=== PATIENT | male | born 1930 | race Caucasian/White ===

== ENCOUNTER 2018-05-17 09:23 | Inpatient (IN) | payer MEDICARE, OTHER ==
[~2018-05-17 09:23] MED LIST: CEFAZOLIN 1 GM INJ; EPHEDrine SULFATE 50 MG/5 ML SYG; PROPOFOL 200 MG INJ; ROCURONIUM 50 MG INJ
[2018-05-17] MEDS ORDERED: LACTATED RINGER'S 1,000 ML IV* (10:00)
[2018-05-17] MEDS: INSULIN ASPART [NOVOLOG] 3 ML PEN SC ×3 (10:44→17:30)
[2018-05-17] MEDS ORDERED: CARISOPRODOL 350 MG TAB PO (11:00)
[2018-05-17] MEDS ORDERED: BISACODYL 10 MG SUPP PR (11:00)
[2018-05-17] MEDS ORDERED: CEPASTAT LOZENGE MT (11:00)
[2018-05-17] MEDS ORDERED: DIPHENHYDRAMINE 50 MG INJ IV ×2 (11:00→14:30)
[2018-05-17] MEDS ORDERED: NALOXONE (0.4 MG/ML) INJ IV (11:00)
[2018-05-17] MEDS ORDERED: ONDANSETRON 4 MG INJ IV ×2 (11:00→14:30)
[2018-05-17] MEDS ORDERED: ZOLPIDEM 5 MG TAB PO (11:00)
[2018-05-17] MEDS ORDERED: HYDROmorphONE 0.5 MG/0.5 ML SYG IV (11:00)
[2018-05-17] MEDS ORDERED: AL HYDROX/MG HYDROX/SIMETH 30 ML CUP PO (11:00)
[2018-05-17] MEDS ORDERED: HEPARIN 1000 UNITS/ML 10 ML INJ (11:10)
[2018-05-17] MEDS ORDERED: CA CHLORIDE 10% 10 ML SYRINGE (11:13)
[2018-05-17] MEDS ORDERED: LIDOCAINE 2% (SDV) 5 ML INJ (11:31)
[2018-05-17] MEDS ORDERED: PROPOFOL 20 ML (11:31)
[2018-05-17] MEDS ORDERED: ROCURONIUM 50 MG INJ (11:31)
[2018-05-17] MEDS ORDERED: SUCCINYLCHOLINE CHLORIDE 100 MG/5 ML SYG IV (11:31)
[2018-05-17] MEDS: CEFAZOLIN 2 GM/50 ML (PMX) 50 ML IVPB (11:45)
[2018-05-17] MEDS ORDERED: ONDANSETRON 4 MG INJ (11:46)
[2018-05-17] MEDS ORDERED: FAMOTIDINE 20 MG INJ (11:46)
[2018-05-17] MEDS: SURGIFOAM POWDER 1 GM KIT ×2 (12:49→12:50)
[2018-05-17] MEDS: BUPIVACAINE 0.25%/EPI (SDV) 30 ML INJ (12:49)
[2018-05-17] MEDS: GELATIN SIZE 100 SPONGE (12:50)
[2018-05-17] MEDS: THROMBIN 5000 UNIT VIAL (12:51)
[2018-05-17] MEDS: THROMBIN 5000 UNIT VIAL TOP (12:52)
[2018-05-17] MEDS: CEFAZOLIN 1 GM INJ (12:53)
[2018-05-17] MEDS: SODIUM CL BACTERIOSTATIC 30 ML INJ (12:53)
[2018-05-17] MEDS: FENTAnyl 50 MCG/ML VIAL (14:06)
[2018-05-17] MEDS: BUPIVACAINE 0.25% (MPF) 30 ML INJ (14:08)
[2018-05-17] MEDS ORDERED: SUGAMMADEX SODIUM 200 MG/2 ML VIAL IV (14:19)
[2018-05-17] MEDS ORDERED: EPHEDrine SULFATE 50 MG/5 ML SYG IV (14:30)
[2018-05-17] MEDS ORDERED: PROCHLORPERAZINE 10 MG INJ IV (14:30)
[2018-05-17] MEDS ORDERED: MEPERIDINE 25 MG INJ IV (14:30)
[2018-05-17] MEDS ORDERED: FENTAnyl 50 MCG/ML VIAL IV ×2 (14:30)
[2018-05-17] MEDS ORDERED: hydrALAzine 20 MG INJ IV (14:30)
[2018-05-17] MEDS ORDERED: HYDROmorphONE 1 MG/5 ML IV SYRINGE IV ×2 (14:30)
[2018-05-17] MEDS: HYDROmorphONE 0.2 MG/ML PCA IV (15:07)
[2018-05-17] MEDS: DILTIAZEM (CD) 120 MG CAP PO (17:00)
[2018-05-17] MEDS ORDERED: DEXTROSE 50% 50 ML SYRINGE IV ×2 (17:30)
[2018-05-17] MEDS ORDERED: GLUCOSE GEL 15 GRAM TUBE BUCCAL (17:30)
[2018-05-17] MEDS ORDERED: GLUCAGON 1 MG INJ IM (17:30)
[2018-05-17] MEDS ORDERED: GLUCOSE GEL 15 GRAM TUBE PO ×2 (17:30)
[2018-05-17] MEDS: GLIMEPIRIDE 4 MG TAB PO (18:00)
[2018-05-17] MEDS: metFORMIN 500 MG TAB PO (18:00)
[2018-05-17] MEDS: ACARBOSE 50 MG TAB PO (18:00)
[2018-05-17] MEDS: CEFAZOLIN 1 GM/50 ML (PMX) 50 ML IVPB ×2 (18:37→19:00)
[2018-05-17] MEDS: 1/2 NS + KCL 20 MEQ 1,000 ML IV ×2 (20:52→22:13)
[2018-05-17] MEDS: ATENOLOL 25 MG TAB PO (21:59)
[2018-05-17] MEDS: ATORVASTATIN 10 MG TAB PO (21:59)
[2018-05-17] MEDS: DOCUSATE SODIUM 100 MG CAP PO (22:07)
[2018-05-17] MEDS: TERAZOSIN 5 MG CAP PO (23:11)
[2018-05-18] MEDS: ACCU-CHEK XX (02:00)
[2018-05-18] MEDS: CEFAZOLIN 1 GM/50 ML (PMX) 50 ML IVPB (02:30)
[2018-05-18 05:00] LABS: ADD MAN DIFF? NO
[2018-05-18 05:03] LABS: BASOPHIL # 0.1 10^3/ul (0.0-0.1); BASOPHILS % 0.7 % (0.0-2.0); EOSINOPHILS # 0.2 10^3/ul (0.0-0.5); HEMATOCRIT 27.9 % (42.0-52.0); HEMOGLOBIN 8.9 g/dl (14.0-18.0); LYMPHOCYTES # 1.3 10^3/ul (0.8-2.9); MEAN CORPUSCULAR HEMOGLOBIN 29.9 pg (29.0-33.0); MEAN CORPUSCULAR HGB CONC 31.9 g/dl (32.0-37.0); MEAN CORPUSCULAR VOLUME 93.6 fl (82.0-101.0); MEAN PLATELET VOLUME 9.5 fl (7.4-10.4); MONOCYTE # 0.8 10^3/ul (0.3-0.9); MONOCYTES % 10.8 % (0.0-11.0); NEUTROPHIL # 5.2 10^3/ul (1.6-7.5); NEUTROPHILS % 69.2 % (39.0-77.0); PLATELET COUNT 158 10^3/UL (140-415); RED BLOOD COUNT 2.98 10^6/ul (4.70-6.10); RED CELL DISTRIBUTION WIDTH 14.5 % (11.5-14.5)
[2018-05-18 05:03] LABS: WHITE BLOOD COUNT 7.6 10^3/ul (4.8-10.8)
[2018-05-18 05:28] LABS: ANION GAP 9 (5-13); BLOOD UREA NITROGEN 19 mg/dl (7-20); CALCIUM 8.7 mg/dl (8.4-10.2); CARBON DIOXIDE 25 mmol/L (21-31); CHLORIDE 104 mmol/L (97-110); CREATININE 0.89 mg/dl (0.61-1.24); GLUCOSE 171 mg/dl (70-220); MAGNESIUM 1.6 mg/dl (1.7-2.5); POTASSIUM 4.4 mmol/L (3.5-5.1); SODIUM 138 mmol/L (135-144)
[2018-05-18] MEDS: PANTOPRAZOLE 40 MG INJ IV (06:06)
[2018-05-18] MEDS: INSULIN ASPART [NOVOLOG] 3 ML PEN SC ×3 (07:05→17:36)
[2018-05-18] MEDS: metFORMIN 500 MG TAB PO ×2 (08:56→17:33)
[2018-05-18] MEDS: ATENOLOL 25 MG TAB PO ×2 (08:56→20:34)
[2018-05-18] MEDS: FINASTERIDE 5 MG TAB PO (08:57)
[2018-05-18] MEDS: DOCUSATE SODIUM 100 MG CAP PO ×2 (08:57→20:34)
[2018-05-18] MEDS: ALLOPURINOL 100 MG TAB PO (08:57)
[2018-05-18] MEDS: PIOGLITAZONE 45 MG TAB PO (09:00)
[2018-05-18] MEDS: GLIMEPIRIDE 4 MG TAB PO ×2 (09:30→17:34)
[2018-05-18] MEDS: 1/2 NS + KCL 20 MEQ 1,000 ML IV ×3 (11:18→21:59)
[2018-05-18] MEDS: ACARBOSE 50 MG TAB PO ×3 (11:19→17:33)
[2018-05-18] MEDS: MAGNESIUM SULFATE 3 GM in DEXTROSE 5% 100 ML IVPB (11:23)
[2018-05-18] MEDS: DILTIAZEM (CD) 120 MG CAP PO (11:24)
[2018-05-18] MEDS: TERAZOSIN 5 MG CAP PO (20:34)
[2018-05-18] MEDS: ATORVASTATIN 10 MG TAB PO (20:34)
[2018-05-19] MEDS: ACCU-CHEK XX ×2 (02:00→22:12)
[2018-05-19 05:12] LABS: WHITE BLOOD COUNT 8.9 10^3/ul (4.8-10.8)
[2018-05-19 05:12] LABS: ADD MAN DIFF? NO; BASOPHILS % 0.4 % (0.0-2.0); EOSINOPHILS # 0.1 10^3/ul (0.0-0.5); EOSINOPHILS % 0.8 % (0.0-7.0); HEMATOCRIT 27.2 % (42.0-52.0); HEMOGLOBIN 8.7 g/dl (14.0-18.0); LYMPHOCYTES # 1.8 10^3/ul (0.8-2.9); LYMPHOCYTES % 19.7 % (15.0-51.0); MEAN CORPUSCULAR HEMOGLOBIN 30.1 pg (29.0-33.0); MEAN CORPUSCULAR VOLUME 94.1 fl (82.0-101.0); MEAN PLATELET VOLUME 9.8 fl (7.4-10.4); MONOCYTE # 1.2 10^3/ul (0.3-0.9); NEUTROPHIL # 5.9 10^3/ul (1.6-7.5); NEUTROPHILS % 65.8 % (39.0-77.0); PLATELET COUNT 160 10^3/UL (140-415); RED BLOOD COUNT 2.89 10^6/ul (4.70-6.10); RED CELL DISTRIBUTION WIDTH 14.5 % (11.5-14.5)
[2018-05-19 05:29] LABS: IRON 22 ug/dl (35-150)
[2018-05-19 05:35] LABS: ANION GAP 8 (5-13); BLOOD UREA NITROGEN 19 mg/dl (7-20); CALCIUM 8.6 mg/dl (8.4-10.2); CARBON DIOXIDE 26 mmol/L (21-31); CHLORIDE 102 mmol/L (97-110); GLUCOSE 140 mg/dl (70-220); POTASSIUM 4.3 mmol/L (3.5-5.1); SODIUM 136 mmol/L (135-144)
[2018-05-19 05:36] LABS: PHOSPHORUS 3.6 mg/dl (2.5-4.9)
[2018-05-19 05:38] LABS: % IRON SATURATION 9 % SAT (22-52); TOTAL IRON BINDING CAPACITY 235 ug/dl (241-421)
[2018-05-19] MEDS: PANTOPRAZOLE (EC) 40 MG TAB PO (06:34)
[2018-05-19] MEDS: 1/2 NS + KCL 20 MEQ 1,000 ML IV (08:00)
[2018-05-19] MEDS: ACETAMINOPHEN 325 MG TAB PO ×3 (08:55→20:44)
[2018-05-19] MEDS: FINASTERIDE 5 MG TAB PO (08:55)
[2018-05-19] MEDS: DOCUSATE SODIUM 100 MG CAP PO ×2 (08:55→20:44)
[2018-05-19] MEDS: FERROUS FUMARATE (SR) TAB PO ×2 (08:56→20:48)
[2018-05-19] MEDS: ALLOPURINOL 100 MG TAB PO (08:56)
[2018-05-19] MEDS: ACARBOSE 50 MG TAB PO ×3 (08:57→17:55)
[2018-05-19] MEDS: DILTIAZEM (CD) 120 MG CAP PO (08:57)
[2018-05-19] MEDS: ATENOLOL 25 MG TAB PO ×2 (08:58→20:47)
[2018-05-19] MEDS: INSULIN ASPART [NOVOLOG] 3 ML PEN SC ×3 (09:27→18:16)
[2018-05-19] MEDS: HYDROCODONE/APAP (5/325) TAB PO (10:00)
[2018-05-19] MEDS ORDERED: HYDROCODONE/APAP (5/325) TAB PO ×2 (11:00)
[2018-05-19] MEDS: GLIMEPIRIDE 4 MG TAB PO ×2 (12:53→17:55)
[2018-05-19] MEDS: metFORMIN 500 MG TAB PO ×2 (12:54→18:14)
[2018-05-19] MEDS: PIOGLITAZONE 45 MG TAB PO (12:59)
[2018-05-19] MEDS: ATORVASTATIN 10 MG TAB PO (20:47)
[2018-05-19] MEDS: TERAZOSIN 5 MG CAP PO (20:47)
[2018-05-20 05:41] LABS: ADD MAN DIFF? NO
[2018-05-20 05:48] LABS: BASOPHILS % 0.2 % (0.0-2.0); EOSINOPHILS # 0.1 10^3/ul (0.0-0.5); EOSINOPHILS % 1.1 % (0.0-7.0); HEMATOCRIT 26.1 % (42.0-52.0); HEMOGLOBIN 8.4 g/dl (14.0-18.0); LYMPHOCYTES # 1.7 10^3/ul (0.8-2.9); LYMPHOCYTES % 21.4 % (15.0-51.0); MEAN CORPUSCULAR HEMOGLOBIN 29.6 pg (29.0-33.0); MEAN CORPUSCULAR HGB CONC 32.2 g/dl (32.0-37.0); MEAN CORPUSCULAR VOLUME 91.9 fl (82.0-101.0); MEAN PLATELET VOLUME 10.4 fl (7.4-10.4); MONOCYTES % 12.7 % (0.0-11.0); NEUTROPHIL # 5.2 10^3/ul (1.6-7.5); NEUTROPHILS % 64.1 % (39.0-77.0); PLATELET COUNT 169 10^3/UL (140-415); RED BLOOD COUNT 2.84 10^6/ul (4.70-6.10); RED CELL DISTRIBUTION WIDTH 14.3 % (11.5-14.5)
[2018-05-20 05:48] LABS: WHITE BLOOD COUNT 8.1 10^3/ul (4.8-10.8)
[2018-05-20] MEDS: PANTOPRAZOLE (EC) 40 MG TAB PO (06:00)
[2018-05-20 06:35] LABS: ANION GAP 6 (5-13); BLOOD UREA NITROGEN 21 mg/dl (7-20); CALCIUM 8.6 mg/dl (8.4-10.2); CARBON DIOXIDE 25 mmol/L (21-31); CHLORIDE 103 mmol/L (97-110); CREATININE 0.94 mg/dl (0.61-1.24); GLUCOSE 160 mg/dl (70-220); POTASSIUM 3.9 mmol/L (3.5-5.1); SODIUM 134 mmol/L (135-144)
[2018-05-20] MEDS: FERROUS FUMARATE (SR) TAB PO (09:01)
[2018-05-20] MEDS: GLIMEPIRIDE 4 MG TAB PO (09:01)
[2018-05-20] MEDS: ALLOPURINOL 100 MG TAB PO (09:01)
[2018-05-20] MEDS: DOCUSATE SODIUM 100 MG CAP PO (09:01)
[2018-05-20] MEDS: ACETAMINOPHEN 325 MG TAB PO (09:01)
[2018-05-20] MEDS: ACARBOSE 50 MG TAB PO (09:01)
[2018-05-20] MEDS: FINASTERIDE 5 MG TAB PO (09:01)
[2018-05-20] MEDS: metFORMIN 500 MG TAB PO (09:02)
[2018-05-20] MEDS: ATENOLOL 25 MG TAB PO (09:02)
[2018-05-20] MEDS: DILTIAZEM (CD) 120 MG CAP PO (09:03)
[2018-05-20] MEDS: INSULIN ASPART [NOVOLOG] 3 ML PEN SC (09:26)
[2018-05-20] MEDS: PIOGLITAZONE 15 MG TAB PO (10:00)
== END 2018-05-20 11:19 | disposition home or self-care (01) | DRG 517 ==
LOC: REC 09:23 → MS1 05-18 21:15 → ICU 19:45
PROVIDERS: Specialist
PROC: 01NB0ZZ Release Lumbar Nerve, Open Approach (ICD-10-PCS; principal; 2018-05-17 11:00)
PROC: 30233H0 Transfusion of Autologous Whole Blood into Peripheral Vein, Percutaneous Approach (ICD-10-PCS; 2018-05-17 11:00)
DX: M48.062 Spinal stenosis, lumbar region with neurogenic claudication (principal); I12.9 Hypertensive chronic kidney disease with stage 1 through stage 4 chronic kidney disease, or unspecified chronic kidney disease; E11.22 Type 2 diabetes mellitus with diabetic chronic kidney disease; N18.3 Chronic kidney disease, stage 3 (moderate); I48.0 Paroxysmal atrial fibrillation; E78.5 Hyperlipidemia, unspecified; N40.0 Benign prostatic hyperplasia without lower urinary tract symptoms; D50.9 Iron deficiency anemia, unspecified; I48.91 Unspecified atrial fibrillation
CPT/HCPCS: 72020; 80048; 82728; 82962; 83540; 83735; 84100; 85025; 86850; 86900; 86901; 86999; 87081; 87086; 88304; 88311; 97116; 97161; 97530